=== PATIENT | male | born 1955 | race Caucasian/White ===

== ENCOUNTER 2017-05-08 18:46 | Emergency (ER) | payer MEDICARE, BC ==
[2017-05-08] MEDS ORDERED: Diabetic Tussin 200 MG/10 ML UDCUP PO SCH (20:45)
[2017-05-08 20:53] LABS: #Basophils 0.1 thou/uL (0.0-0.2); #Eosinphils 0.1 thou/uL (0.0-0.7); #Lymphocytes 1.8 thou/uL (1.20-3.40); #Monocytes 1.2 thou/uL (0.11-0.59); #Neutrophils 9.5 thou/uL (1.40-6.50); %Basophils 0.5 % (0.0-1.0); %Eosinophils 1.1 % (0.0-10.0); %Lymphocytes 14.4 % (21.0-51.0); %Monocytes 9.3 % (0.0-10.0); Hematocrit 46.5 % (42.0-52.0); Mean Platelet Volume 7.8 fL (7.4-10.4); Red Blood Cell (RBC) Count 5.03 mill/uL (4.70-6.10); White Blood Cell (WBC) Count 12.7 thou/uL (4.8-10.8)
[2017-05-08 21:05] LABS: ALT (SGPT) 25 U/L (8-55); AST (SGOT) 25 U/L (5-34); Alkaline Phosphatase 54 U/L (40-150); Anion Gap 14 mmol/L (10-20); BUN (Urea Nitrogen) 36 mg/dL (8.4-25.7); Bilirubin, Total 0.9 mg/dL (0.2-1.2); Calc. Creatinine Clearance 0 mL/min (70-130); Calcium 9.9 mg/dL (7.8-10.44); Carbon Dioxide 27 mmol/L (23-31); Chloride 101 mmol/L (98-107); Estimated GFR-MDRD 54; Globulin 3.7 g/dL (2.4-3.5); Protein, Total 8.1 g/dL (5.8-8.1)
--- NOTE | 2017-05-08 21:33 | RAD ---
CHEST PA AND LATERAL: 05/08/17 HISTORY: 61-year-old male with fever and cough for two days. COMPARISON: 04/11/10 FINDINGS/IMPRESSION: Heart size is normal. The lungs are clear. No pneumonia, edema, pleural effusion, or other acute int rathoracic disease. POS: [facility]
== END 2017-05-08 22:01 | disposition home or self-care (01) ==
LOC: ERS 18:46
DX: J06.9 Acute upper respiratory infection, unspecified (principal); E11.9 Type 2 diabetes mellitus without complications; E78.00 Pure hypercholesterolemia, unspecified; I10 Essential (primary) hypertension
CPT/HCPCS: 36415; 71020; 80053; 85025; 93005